=== PATIENT | female | born 2000 | race Caucasian/White ===

== ENCOUNTER 2020-03-02 07:58 | Outpatient (CLI) | payer BC ==
[2020-03-02] VITALS (15 sets, daily range): BP systolic 110–129; BP diastolic 65–90
== END 2020-03-02 23:59 | disposition home or self-care (01) ==
LOC: CARD DIAG 07:58
PROVIDERS: ATTEND Internal Medicine Interventional Cardiology
DX: R55 Syncope and collapse (principal)
CPT/HCPCS: 93660